=== PATIENT | male | born 1985 ===

== ENCOUNTER 2020-10-13 11:30 | Emergency (ER) | payer OTHER ==
[~2020-10-13 11:30] MED LIST: PRILOSEC20 MG PO
[2020-10-13] MEDS ORDERED: DICYCLOMINE HCL10 MG PO (12:01)
[2020-10-13] MEDS ORDERED: VENTOLIN HFA IN18 GM INH (12:01)
[2020-10-13 12:47] LABS: BASOPHIL 0.6 % (0-2); EOSINOPHIL 3.2 % (0-5); HCT 49.3 % (42.0-52.0); HGB 17.2 g/dl (13.2-18.0); LYMPHOCYTE 23.5 % (15-48); MCH 29.6 pg (25.0-31.0); MCHC 34.9 g/dL (32.0-36.0); MCV 84.7 fL (78.0-100.0); MONOCYTE 12.8 % (0-12); MPV 10.1 fL (6.0-9.5); NEUTROPHIL 59.6 % (41-80); NRBC 0; PLT 254 K/uL (150-400); RBC 5.82 M/uL (4.70-6.00); RDW 12.4 % (11.5-14.0); WBC 6.6 K/uL (4.0-10.5)
[2020-10-13 13:09] LABS: ALBUMIN 4.1 g/dL (3.4-5.0); BILIRUBIN - TOTAL 0.3 mg/dL (0.2-1.0); BUN/CREAT RATIO (CALC) 11.3 RATIO; CREATININE 1.15 mg/dL (0.67-1.17); GLOBULIN (CALCULATION) 4.1 g/dL; POTASSIUM 4.4 mmol/L (3.5-5.1); TOTAL PROTEIN 8.2 g/dL (6.4-8.2)
[2020-10-13 13:53] LABS: BILIRUBIN NEGATIVE (NEGATIVE); BLOOD NEGATIVE Ery/uL (NEGATIVE); CLARITY CLEAR (CLEAR); COLOR YELLOW (YELLOW); GLUCOSE (U) NORMAL (NORMAL); LEUKOCYTES NEGATIVE Leu/uL (NEGATIVE); NITRITE NEGATIVE (NEGATIVE); PROTEIN NEGATIVE (NEGATIVE); SPECIFIC GRAVITY <=1.005 (1.001-1.030); UROBILINOGEN 0.2 mg/dL (0.2-1.0)
[2020-10-13] MEDS ORDERED: METRONIDAZOLE500 MG PO (17:31)
[2020-10-13] MEDS ORDERED: NEXIUM20 MG PO (17:33)
== END 2020-10-13 17:57 | disposition home or self-care (01) ==
LOC: FER 11:30
PROVIDERS: Emergency Medicine
DX: R10.10 Upper abdominal pain, unspecified (principal); R19.7 Diarrhea, unspecified; K82.4 Cholesterolosis of gallbladder; Z87.19 Personal history of other diseases of the digestive system; Z88.5 Allergy status to narcotic agent; Z88.6 Allergy status to analgesic agent
CPT/HCPCS: 36415; 76705; 80053; 81003; 82150; 83690; 85025; J7030; Q9967